=== PATIENT | female | born 1960 | race Caucasian/White ===

== ENCOUNTER → 2018-01-22 | Outpatient (CLI) | payer BC ==
--- NOTE | 2018-01-31 15:44 | P.ARTDOP ---
Arterial Doppler LOWER EXTREMITY ARTERIAL DOPPLER: DATE OF SERVICE: 01/22/2018 Reason for study: Bilateral foot ulcers. Doppler waveforms: Multiphasic bilaterally throughout. Pulse volume recording: []. Pressure gradients: None. Ankle-brachial indices: Greater than 1 bilaterally. Toe pressures: [] on the right, [] on the left Impression: Normal study.
== END | disposition home or self-care (01) ==
LOC: RADUSWWP 13:00
PROVIDERS: ATTEND Family Medicine
DX: I87.2 Venous insufficiency (chronic) (peripheral) (principal); R60.0 Localized edema
CPT/HCPCS: 93922

== ENCOUNTER 2018-07-05 06:48 | Emergency (ER) | payer BC, OTHER ==
--- NOTE | 2018-07-05 07:10 | ED ---
Upper Extremity HPI - General Chief Complaint: Extremity Injury, Upper Stated Complaint: IHS Fall Hurt R Wrist Time Seen by Provider: 07/05/18 07:06 Source: patient, RN notes reviewed Mode of arrival: ambulatory Limitations: no limitations - History of Present Illness Initial Comments: 58-year-old female presents emergency Department with chief complaint of right wrist injury. Patient states she slipped and fell on ice. She states that she primary fell Herself with her right wrist. She has minimal left which is not bothersome. She'll say she bumped her knees but has no complaints of them at this time. Patient denies any head injury no loss conscious. Patient offers no other complaints. - Related Data Home Medications Medication Instructions Recorded Confirmed Enalapril [Vasotec] 2.5 mg PO DAILY 02/11/16 02/11/16 Furosemide [Lasix] 20 mg PO DAILY 02/11/16 02/11/16 HYDROcodone/APAP 7.5-325MG [Coral 1 tab PO Q6H PRN 02/11/16 02/11/16 7.5-325] Hydrochlorothiazide 25 mg PO DAILY 02/11/16 02/11/16 Levothyroxine Sodium [Synthroid] 75 mcg PO DAILY 02/11/16 02/11/16 Potassium Chloride ER [K-Dur 20] 20 meq PO DAILY 02/11/16 02/11/16 Zolpidem [Ambien] 10 mg PO HS PRN 02/11/16 02/11/16 Previous Rx's Medication Instructions Recorded HYDROcodone/APAP 7.5-325MG [Coral 1 each PO Q4H PRN #60 tab 02/11/16 7.5] Levofloxacin [Levaquin] 500 mg PO DAILY #7 tab 02/11/16 Allergies Allergy/AdvReac Type Severity Reaction Status Date / Time codeine Allergy Vomiting Verified 02/11/16 11:45 erythromycin base Allergy Vomiting Verified 02/11/16 11:44 Penicillins Allergy Rash/Hives Verified 02/11/16 11:43 tramadol [From Ultram] Allergy Itching Verified 02/11/16 11:44 Review of Systems ROS Statement: Those systems with pertinent positive or pertinent negative responses have been documented in the HPI. ROS Other: All systems not noted in ROS Statement are negative. 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 DRAINING CYST 3X LAPROSCOPIC ENDROMETROSIS, LT SHOULDER PARTIAL ROTATOR CUFF REPAIR Past Anesthesia/Blood Transfusion Reactions: No Reported Reaction Past Psychological History: No Psychological Hx Reported Smoking Status: Never smoker Past Alcohol Use History: Rare Past Drug Use History: None Reported - Past Family History Father Family Medical History: Cancer Additional Family Medical History / Comment(s): GALL BLADDER CANCER General Exam General appearance: alert, in no apparent distress Head exam: Present: atraumatic, normocephalic, normal inspection Neck exam: Present: normal inspection, full ROM. Absent: tenderness, meningismus, lymphadenopathy Respiratory exam: Present: normal lung sounds bilaterally. Absent: respiratory distress, wheezes, rales, rhonchi, stridor Cardiovascular Exam: Present: regular rate, normal rhythm, normal heart sounds. Absent: systolic murmur, diastolic murmur, rubs, gallop, clicks Extremities exam: Present: other (Right wrist tenderness with palpation, no iris deformity neurovascular intact, no hand tenderness no proximal forearm tenderness) Neurological exam: Present: alert, oriented X3, CN II-XII intact, reflexes normal. Absent: motor sensory deficit Skin exam: Present: warm, dry, intact, normal color. Absent: rash Course Vital Signs 07/05/18 06:50 Temperature 98.3 F Pulse Rate 70 Respiratory 18 Rate Blood Pressure 188/102 O2 Sat by Pulse 94 L Oximetry Procedures - Orthopedic Splinting/Casting Injury #1 Side: right Upper Extremity Injury Location: short arm, wrist Upper Extremity Immobilizer: volar splint, synthetic pre-padded splint Medical Decision Making - Medical Decision Making 58-year-old female sent for right wrist injury. There is possible obstruction the scaphoid lunate area. Patient was placed in a short arm volar splint and will follow-up with orthopedics. Disposition Clinical Impression: Right wrist sprain, Disorder of ligament, right wrist Disposition: HOME SELF-CARE Condition: Stable Instructions (If sedation given, give patient instructions): Wrist Injury (ED) Additional Instructions: Please return to the Emergency Department if symptoms worsen or any other concerns. Is patient prescribed a controlled substance at d/c from ED?: No Referrals: Blaire Aranda DO [Primary Care Provider] - 1-2 days Julito Daly DO [Medical Doctor] - 1-2 days Time of Disposition: 08:24
--- NOTE | 2018-07-05 07:48 | XR ---
EXAMINATION TYPE: XR wrist complete RT DATE OF EXAM: 07/05/2018 COMPARISON: NONE HISTORY: 58-year-old female right wrist pain after fall TECHNIQUE: 4 views FINDINGS: There is joshua widening scapholunate interval measuring up to 5 mm. The radioscaphoid joint is mainta ined. Slight negative ulnar variance. Jirb-[id number]-[id number] degenerative changes at the first CMC joint an d also within the MCP and first IP joints no acute fracture or dislocation. IMPRESSION: 1. Disruption of the scapholunate ligament which is age indeterminate. Clinically correlate. No speci fic findings of SLAC wrist at this time. 2. 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
[2018-07-05 08:49] VITALS: BP 174/75; PULSE 84; RESP 16; TEMP 97.6
== END 2018-07-05 08:48 | disposition home or self-care (01) ==
LOC: EC 06:48
DX: S63.501A Unspecified sprain of right wrist, initial encounter (principal); M24.231 Disorder of ligament, right wrist; I10 Essential (primary) hypertension; Z96.651 Presence of right artificial knee joint; Z79.890 Hormone replacement therapy; Z79.899 Other long term (current) drug therapy; Z88.5 Allergy status to narcotic agent; Z88.1 Allergy status to other antibiotic agents; Z88.0 Allergy status to penicillin; W00.0XXA Fall on same level due to ice and snow, initial encounter; Y92.480 Sidewalk as the place of occurrence of the external cause; Y93.01 Activity, walking, marching and hiking; Y99.0 Civilian activity done for income or pay
CPT/HCPCS: 29125; 99283

== ENCOUNTER → 2018-12-14 | Outpatient (CLI) | payer BC ==
[2018-12-14 11:35] LABS: Basophils % (A) 1 %; Eosinophils # (A) 0.3 k/uL (0-0.7); Eosinophils % (A) 5 %; HCT 44.7 % (34.0-46.0); HGB 14.3 gm/dL (11.4-16.0); Lymphocytes % (A) 32 %; MCH 29.9 pg (25.0-35.0); MCV 93.2 fL (80.0-100.0); Monocytes # (A) 0.4 k/uL (0-1.0); Monocytes % (A) 6 %; Neutrophils # (A) 3.5 k/uL (1.3-7.7); Neutrophils % (A) 55 %; Platelet Count 211 k/uL (150-450); RBC 4.79 m/uL (3.80-5.40); RDW 12.8 % (11.5-15.5); WBC 6.4 k/uL (3.8-10.6)
[2018-12-14 18:53] LABS: African American GFR (CKD) 95.5 (60.0-200.0); Albumin 4.3 g/dL (3.80-4.90); Albumin/Globulin Ratio 1.87 (1.60-3.17); BUN/Creat Ratio 16.25 Ratio (12.00-20.00); Calcium 9.1 mg/dL (8.7-10.3); Globulin 2.3 g/dL (1.6-3.3); Potassium 4.4 mmol/L (3.5-5.5); Total Bilirubin 0.5 mg/dL (0.3-1.2); Total Protein 6.6 g/dL (6.2-8.2)
[2018-12-14 19:00] LABS: T4, Free (Free Thyroxine) 0.9 ng/dL (0.80-1.80)
[2018-12-14 20:32] LABS: Hemoglobin A1C 5.6 % (4.0-6.0)
== END | disposition home or self-care (01) ==
LOC: LABWHC1 10:51
PROVIDERS: ATTEND Family Medicine
DX: E03.9 Hypothyroidism, unspecified (principal); E66.9 Obesity, unspecified; G47.00 Insomnia, unspecified
CPT/HCPCS: 36415; 80053; 80061; 83036; 84439; 84443; 85025

== ENCOUNTER → 2020-09-21 | Outpatient (CLI) | payer BC ==
--- NOTE | 2020-09-22 10:39 | ECHOF ---
Referral Reason:R01.1 Newly recognized murmur MEASUREMENTS -------- HEIGHT: 170.2 cm WEIGHT: 145.1 kg BP: IVSd: 1.3 cm (0.6 - 1.1) LVIDd: 5.0 cm (3.9 - 5.3) LVPWd: 1.5 cm (0.6 - 1.1) IVSs: 1.7 cm LVIDs: 2.7 cm LVPWs: 1.5 cm LAESV Index (A-L): 27.15 ml/m Ao Diam: 3.5 cm (2.0 - 3.7) MV EXCURSION: 23.080 mm (> 18.000) MV EF SLOPE: 70 mm/s (70 - 150) MV E Jon: 0.47 m/s MV DecT: 233 ms MV A Jon: 0.73 m/s MV E/A Ratio: 0.64 RAP: 5.00 mmHg RVSP: 11.51 mmHg FINDINGS -------- Sinus rhythm. Morbid Obesity LV size, wall thickness and systolic function are normal, with an EF greater than 55%. The left alina tricular size is normal. The right ventricle is normal in size. The left atrial size is normal. The right atrial size is normal. The aortic valve is trileaflet, and appears structurally normal. No aortic stenosis or regurgitation. Mild mitral regurgitation is present. Mild tricuspid regurgitation present. Right ventricular systolic pressure is normal at < 35 mmHg. The pulmonic valve was not well visualized. Echo free space represents a pericardial fat pad. CONCLUSIONS -------- 1. Morbid Obesity 2. LV size, wall thickness and systolic function are normal, with an EF greater than 55%. 3. The left ventricular size is normal. 4. The right ventricle is normal in size. 5. The left atrial size is normal. 6. The right atrial size is normal. 7. The aortic valve is trileaflet, and appears structurally normal. No aortic stenosis or regurgitati on. 8. Mild mitral regurgitation is present. 9. Mild tricuspid regurgitation present. 10. The pulmonic valve was not well visualized. 11. Echo free space represents a pericardial fat pad. MARINE SURVEYOR: Anastasia Malhotra RDCS
== END | disposition home or self-care (01) ==
LOC: RADECHMAIN 11:34
PROVIDERS: ATTEND Family Medicine
DX: I08.1 Rheumatic disorders of both mitral and tricuspid valves (principal); E66.01 Morbid (severe) obesity due to excess calories
CPT/HCPCS: 93306

== ENCOUNTER → 2021-02-23 | Outpatient (CLI) | payer OTHER ==
[2021-02-23 20:20] LABS: Basophils # (A) 0.04 X 10*3/uL (0.00-0.10); Basophils % (A) 0.6 %; Eosinophils # (A) 0.28 X 10*3/uL (0.04-0.35); Eosinophils % (A) 4.4 %; HCT 44.2 % (37.2-46.3); HGB 13.9 g/dL (12.0-15.0); Lymphocytes # (A) 1.95 X 10*3/uL (0.90-5.00); Lymphocytes % (A) 30.8 %; MCH 30.1 pg (27.0-32.0); MCHC 31.4 g/dL (32.0-37.0); MCV 95.7 fL (80.0-97.0); Mean Platelet Volume 10.5 fL (9.5-12.2); Monocytes % (A) 7.9 %; Neutrophils # (A) 3.54 X 10*3/uL (1.80-7.70); Neutrophils % (A) 55.8 %; Platelet Count 206 X 10*3/uL (140-440); RBC 4.62 X 10*6/uL (4.10-5.20); RDW 12.8 % (11.5-14.5); WBC 6.34 X 10*3/uL (4.50-10.00)
[2021-02-24 08:53] LABS: African American GFR (CKD) 79.1 (60.0-200.0); Albumin/Globulin Ratio 1.57 (1.60-3.17); Anion Gap 16.5 mmol/L (4.00-12.00); BUN/Creat Ratio 12.45 Ratio (12.00-20.00); Blood Urea Nitrogen 11.5 mg/dL (9.0-27.0); Chol/HDL Ratio 4.87 Ratio; Globulin 2.5 g/dL (1.6-3.3); HDL Cholesterol 42.9 mg/dL (40.00-60.00); LDL Cholesterol,Calculated 125.9 mg/dL (0.0-131.0); Non-African American GFR(CKD) 68.3 (60.0-200.0); Total Bilirubin 0.4 mg/dL (0.30-1.20); Total Protein 6.5 g/dL (6.2-8.2); VLDL Calculation 40.2 mg/dL (5.00-40.00)
== END | disposition home or self-care (01) ==
LOC: LABWHC1 11:29
PROVIDERS: ATTEND Family Medicine
DX: Z00.00 Encounter for general adult medical examination without abnormal findings (principal)
CPT/HCPCS: 36415; 80053; 80061; 84443; 85025

== ENCOUNTER → 2022-03-07 | Outpatient (CLI) | payer OTHER ==
--- NOTE | 2022-03-07 15:54 | US ---
EXAMINATION TYPE: US venous doppler duplex LE RT DATE OF EXAM: 03/07/2022 3:40 PM COMPARISON: NONE CLINICAL HISTORY: R22.40 LOCALIZED SWELLING, MASS AND LUMP, UNS LOWER LIMB. Pain SIDE PERFORMED: Right TECHNIQUE: The lower extremity deep venous system is examined utilizing real time linear array sonog mona with graded compression, doppler sonography and color-flow sonography. VESSELS IMAGED: Common Femoral Vein Deep Femoral Vein Greater Saphenous Vein * Femoral Vein Popliteal Vein Small Saphenous Vein * Proximal Calf Veins (* superficial vessels) Right Leg: Negative for DVT Grayscale, color doppler, spectral doppler imaging performed of the deep veins of the lower extremiti es. There is normal flow, compressibility, vascular waveforms. IMPRESSION: No evidence of deep vein thrombosis of the right lower extremity.
== END | disposition home or self-care (01) ==
LOC: RADUSWWP 15:14
PROVIDERS: ATTEND Family Medicine
DX: R22.41 Localized swelling, mass and lump, right lower limb (principal)